=== PATIENT | male | born 1950 | race Caucasian/White ===

== ENCOUNTER → 2019-11-04 | Day surgery (SDC) | payer MEDICARE ==
[~2019-11-04] MED LIST: ACETAMINOPHEN 325 MG TABLET PO PRN; ALBUTEROL SULFATE 2.5 MG/3 ML NEBU. NEB PRN; APIX5TAB3 PO; ATEN50TA PO; ATOR20TA58 PO; ATROPINE 0.5 MG/5 ML DISP.SYRIN. IV PRN; BALANCED SALT IRRIG OPHTH SOLN 15 ML BOTTLE. IRR ONE; CATARACT OPHTH GEL 0.5 ML SYRINGE. OS ONE; CHONDROIT-SOD-HYALURONATE KIT. OS ONE; EPINEPHrine AMPULE 0.5 MG in BALANCED SALT IRRIG SOLN PLUS 500 ML IO ONE; ERYTHROMYCIN 0.5% OPHTH OINTMENT 1GM TUBE. ONE; ERYTHROMYCIN 0.5% OPHTH OINTMENT 1GM TUBE. OS ONE; HYALURONIDASE 75UNITS in LIDOCAINE 2% PF OPHTH 10 ML SYRINGE. OS ONE; IV RINGERS SOLUTION,LACTATED 1,000 ML IV SCH; KETOROLAC TROMETHAMINE 0.5% OPHTH SOLUTION BOTTLE. OS SCH; LEVO25TA4 PO; MIDAZOLAM HCL PF 2 MG/2 ML VIAL. IV PRN; MOXIFLOXACIN 0.5% OPHTH SOLUTION 3ML BOTTLE. OS SCH; ONDANSETRON PF 4 MG/2 ML VIAL. IV PRN; PHENOL ORAL SPRAY 177ML BOTTLE. MM PRN; POVIDONE-IODINE 5% OPHTH SOLUTION 30ML BOTTLE. OS ONE; PROPOFOL 10,000 MCG/ML (20ML) VIAL IV ONE; PROPOFOL 20 ML IV ONE; TETRACAINE 0.5% OPHTH SOLUTION 4ML BOTTLE. OS ONE; TETRACAINE 0.5% OPHTH SOLUTION 4ML BOTTLE. OU ONE; diphenhydrAMINE 50 MG/ML VIAL IV PRN; prednisoLONE ACETATE 1% OPHTH SUSPENSION 5ML BOTTLE. OS SCH
[2019-11-04] MEDS: MOXIFLOXACIN 0.5% OPHTH SOLUTION 3ML BOTTLE. OS SCH ×3 (06:58→07:14)
--- NOTE | 2019-11-04 08:15 | PDOC4 ---
Senile Cataract, Left Eye Date of Procedure: Nov 04, 2019 Preoperative Diagnosis: Senile Cataract, Left Eye Postoperative Diagnosis: Senile Cataract, Left Eye Anesthesia: Local (Block) with monitored anesthesia care Surgeon: Delonte Calix D.O. Procedure: Left Phacoemulsification with Intraocular Lens Implant Findings: Senile CataraCT Indications: Worsening vision interfering with patient's lifestyle Narrative: After discussing the risks, complications and alternatives, including but not limited to loss of vision, infections, bleeding, swelling, anesthetic reaction, capsule rupture with vitreous loss, etc., the patient was given a peribulbar block under mild sedation and cardiac monitoring. Pressure was applied to the eye for approximately 10 minutes. The patient was transferred to the main operating room and was prepped and draped in the usual sterile fashion and positioned under the microscope. A lid speculum was placed. A temporal clear corneal incision was made with a keratome and viscoelastic was injected into the eye. A continuous tear capsulorrhexis was a performed, then hydro-dissection was accomplished with balanced salt solution. The phacoemulsification needle was placed in the eye and the nucleus was emulsify. The remaining cortical material was removed with the irrigation and aspiration apparatus. The capsule was polished as needed. The posterior capsule was noted to be clean and intact. Viscoelastic was injected into the eye and bleeding the capsular bag. An intraocular lens was injected into the eye, and folding as desired and was positioned in the capsular bag. The pupil expansion ring was removed from the eye. Viscoelastic was aspirated from the eye. The wound edges were hydrated and balance was salt solution and there were no leaks. Viscoelastic was injected over the limbal incisions. Antibiotic and steroids were placed on the eye. The lid speculum was removed, the eye patched shut and a Ambrocio shield applied. There were no complications and the patient was taken to the PACU in good condition. DELONTE CALIX DO Nov 04, 2019 08:15
[2019-11-04 08:33] VITALS: BP 117/76
== END | disposition home or self-care (01) ==
LOC: SURG 06:00
PROVIDERS: ATTEND Ophthalmology
DX: H25.89 Other age-related cataract (principal); I48.91 Unspecified atrial fibrillation; M19.90 Unspecified osteoarthritis, unspecified site; E03.9 Hypothyroidism, unspecified; I10 Essential (primary) hypertension; Z86.73 Personal history of transient ischemic attack (TIA), and cerebral infarction without residual deficits; Z79.899 Other long term (current) drug therapy; Z87.01 Personal history of pneumonia (recurrent); Z98.890 Other specified postprocedural states
CPT/HCPCS: 66982; J0171; J2704; V2632; 45378

== ENCOUNTER 2021-10-18 08:58 | Emergency (ER) | payer MEDICARE ==
[~2021-10-18] VITALS: Ht 200.7 cm; Wt 126.3 kg
[~2021-10-18 08:58] MED LIST changes: -ACETAMINOPHEN 325 MG TABLET PO PRN; -ALBUTEROL SULFATE 2.5 MG/3 ML NEBU. NEB PRN; -ATROPINE 0.5 MG/5 ML DISP.SYRIN. IV PRN; -BALANCED SALT IRRIG OPHTH SOLN 15 ML BOTTLE. IRR ONE; -CATARACT OPHTH GEL 0.5 ML SYRINGE. OS ONE; -CHONDROIT-SOD-HYALURONATE KIT. OS ONE; -EPINEPHrine AMPULE 0.5 MG in BALANCED SALT IRRIG SOLN PLUS 500 ML IO ONE; -ERYTHROMYCIN 0.5% OPHTH OINTMENT 1GM TUBE. ONE; -ERYTHROMYCIN 0.5% OPHTH OINTMENT 1GM TUBE. OS ONE; -HYALURONIDASE 75UNITS in LIDOCAINE 2% PF OPHTH 10 ML SYRINGE. OS ONE; -IV RINGERS SOLUTION,LACTATED 1,000 ML IV SCH; -KETOROLAC TROMETHAMINE 0.5% OPHTH SOLUTION BOTTLE. OS SCH; -MIDAZOLAM HCL PF 2 MG/2 ML VIAL. IV PRN; -MOXIFLOXACIN 0.5% OPHTH SOLUTION 3ML BOTTLE. OS SCH; -ONDANSETRON PF 4 MG/2 ML VIAL. IV PRN; -PHENOL ORAL SPRAY 177ML BOTTLE. MM PRN; -POVIDONE-IODINE 5% OPHTH SOLUTION 30ML BOTTLE. OS ONE; -PROPOFOL 10,000 MCG/ML (20ML) VIAL IV ONE; -PROPOFOL 20 ML IV ONE; -TETRACAINE 0.5% OPHTH SOLUTION 4ML BOTTLE. OS ONE; -TETRACAINE 0.5% OPHTH SOLUTION 4ML BOTTLE. OU ONE; -diphenhydrAMINE 50 MG/ML VIAL IV PRN; -prednisoLONE ACETATE 1% OPHTH SUSPENSION 5ML BOTTLE. OS SCH
--- NOTE | 2021-10-18 09:37 | PHYS DOC ---
Past History Additional Past Medical Histor: prostate CA (SENA HALEY APRN) Past Surgical History: Other Additional Past Surgical Histo: abd mesh palced for abd hernia (SENA HALEY APRN) Alcohol Use: None (SENA HALEY APRN) General Adult EDM: Chief Complaint: SHORTNESS OF BREATH HPI: HPI: Patient is a 71-year-old male who presents to the emergency department for shortness of breath, nonproductive cough, nasal and chest congestion that started yesterday. Patient reports that he has been retaining more fluid than normal and is on a diuretic. He states that he did not take his medications today. He went to Dr. Belle's office and was sent to the emergency department because they said that his oxygen saturation was 71% on room air. Patient does not wear oxygen at home. When patient arrived he is in no acute distress and his O2 saturation is 97% on room air and he is nonlabored. Patient denies any shortness of breath at rest but reports shortness of breath with exertion and noticed that when he was walking down his stairs today. Patient denies any recent travel, fever, nausea, vomiting, chest pain, sick exposures. Patient has a history of A. fib on Eliquis, CHF, prostate cancer and just underwent radiation treatments and hypertension. (SENA HALEY APRN) Review of Systems: Review of Systems: Constitutional: See HPI HENT: See HPI Respiratory: See HPI Cardiovascular: See HPI GI: See HPI (SENA HALEY APRN) Allergies: Allergies: Allergies Coded Allergies Type Severity Reaction Last Updated Verified No Known Drug Allergies 10/18/21 No (SENA HALEY APRN) Physical Exam: PE: Constitutional: Well developed, well nourished, no acute distress, non-toxic appearance. [] HENT: Normocephalic, atraumatic, bilateral external ears normal, oropharynx moist, no oral exudates, nose normal. [] Eyes: PERRL, EOMI, conjunctiva normal, no discharge. [] Neck: Normal range of motion, no tenderness, supple, no stridor. [] Cardiovascular:Heart rate regular rhythm, no murmur [] Lungs & Thorax: Bilateral breath sounds clear to auscultation [] Abdomen: Bowel sounds normal, soft, no tenderness, no masses, no pulsatile masses. [] Skin: Warm, dry, no erythema, no rash. [] Back: normal ROM Extremities: No tenderness, no cyanosis, no clubbing, ROM intact, trace edema noted to BLE. [] Neurologic: Alert and oriented X 3, normal motor function, normal sensory function, no focal deficits noted. [] Psychologic: Affect normal, judgement normal, mood normal. [] (SENA HALEY APRN) Current Patient Data: Labs: Laboratory Tests Test 10/18/21 09:50 White Blood Count 6.4 x10^3/uL Red Blood Count 3.91 x10^6/uL Hemoglobin 12.9 g/dL Hematocrit 37.9 % Mean Corpuscular Volume 97 fL Mean Corpuscular Hemoglobin 33 pg Mean Corpuscular Hemoglobin Concent 34 g/dL Red Cell Distribution Width 14.1 % Platelet Count 142 x10^3/uL Neutrophils (%) (Auto) 78 % Lymphocytes (%) (Auto) 10 % Monocytes (%) (Auto) 11 % Eosinophils (%) (Auto) 1 % Basophils (%) (Auto) 0 % Neutrophils # (Auto) 5.0 x10^3uL Lymphocytes # (Auto) 0.6 x10^3/uL Monocytes # (Auto) 0.7 x10^3/uL Eosinophils # (Auto) 0.1 x10^3/uL Basophils # (Auto) 0.0 x10^3/uL Sodium Level 140 mmol/L Potassium Level 4.5 mmol/L Chloride Level 106 mmol/L Carbon Dioxide Level 28 mmol/L Anion Gap 6 Blood Urea Nitrogen 27 mg/dL Creatinine 1.5 mg/dL Estimated GFR (Cockcroft-Gault) 46.0 BUN/Creatinine Ratio 18 Glucose Level 108 mg/dL Calcium Level 9.0 mg/dL Total Bilirubin 1.0 mg/dL Aspartate Amino Transf (AST/SGOT) 16 U/L Alanine Aminotransferase (ALT/SGPT) 25 U/L Alkaline Phosphatase 35 U/L Troponin I High Sensitivity 10 ng/L LV-Jlm-A-Type Natriuretic Peptide 1322 pg/mL Total Protein 6.8 g/dL Albumin 3.3 g/dL Albumin/Globulin Ratio 0.9 Influenza Type A (Rapid) Negative Influenza Type B (Rapid) Negative Vital Signs: Vital Signs Date Time Temp Pulse Resp B/P (MAP) Pulse Ox O2 Delivery O2 Flow Rate FiO2 10/18/21 09:07 99.2 87 14 117/51 (73) 98 Room Air (SENA HALEY APRN) EKG: EKG: EKG performed by ER staff at 48 shows A. fib with a rate of 88, no STEMI read by Dr. Chung at 50 [] (SENA HALEY APRN) Radiology/Procedures: Radiology/Procedures: []REASON: soa PROCEDURE: PORTABLE CHEST 1V XR CHEST 1V History: Reason: soa / Spl. Instructions: / History: Comparison: July 05, 2016 Findings: Mild left basilar linear atelectasis. No consolidation or pleural effusion. No pneumothorax. Impression: 1. Mild left basilar linear atelectasis. Electronically signed by: Jerry Mitchell DO (10/18/2021 9:37 AM) [id number] DICTATED AND SIGNED BY: JERRY MITCHELL DO DATE: 10/18/21935 CC: SENA HALEY APRN; STEPHANIE CONWAY EXTERNAL AUDITOR-C ~MTH0 0 (SENA HALEY APRN) Heart Score: C/O Chest Pain: No Risk Factors: Risk Factors: DM, Current or recent (<one month) smoker, HTN, HLP, family history of CAD, obesity. Risk Scores: Score 0 - 3: 2.5% MACE over next 6 weeks - Discharge Home Score 4 - 6: 20.3% MACE over next 6 weeks - Admit for Clinical Observation Score 7 - 10: 72.7% MACE over next 6 weeks - Early Invasive Strategies (SENA HALEY APRN) Course & Med Decision Making: Course & Med Decision Making Pertinent Labs and Imaging studies reviewed. (See chart for details) Patient presents to the emergency department for chest and nasal congestion, nonproductive cough and shortness of breath with exertion that started yesterday. Patient was sent from Dr. Belle's office for an O2 saturation of 71% on room air, however patient is nonlabored, in no acute distress and not having hypoxia or tachypnea. Work-up in the ER consisted of blood work, EKG and chest x-ray. Chest x-ray shows left basilar atelectasis, he will be treated with an antibiotic. Patient CBC was unremarkable. Negative influenza testing. Patient did not have an elevated troponin. Patient has an elevation in his BUN and creatinine as well as an elevated BNP, I discussed these findings with prior patient's primary care provider Dr. Orellana who stated that patient does have a history of chronic kidney disease and does have an elevated BNP in which he follows up with an employment and claims aide at [facility]. Patient was ambulated and did not become hypoxic. His vital signs are stable and he is in no acute distress. Patient will be discharged home with an antibiotic and is advised to follow-up with Dr. Belle tomorrow. I discussed with patient all findings and diagnostic testing as well as the need to follow-up with PCP for further evaluation and treatment or return to the ER if any new or worsening symptoms. Strict return precautions were also discussed at length. Patient voiced understanding and agreement with the plan. Patient is hemodynamically stable at the time of disposition. (SENA HALEY APRN) Dragon Disclaimer: Ezra Disclaimer: This electronic medical record was generated, in whole or in part, using a voice recognition dictation system. (SENA HALEY APRN) Attending Co-Sign The patient was seen and interviewed as well as examined at the bedside. The chart was reviewed. The case was discussed. Agree with the plan of care. (BEATRICE CHUNG DO) Departure Departure: Impression: Primary Impression: Person under investigation for COVID-19 Additional Impression: Pneumonia Qualified Codes: J18.9 - Pneumonia, unspecified organism Disposition: HOME / SELF CARE / HOMELESS Condition: GOOD Referrals: STEPHANIE CONWAY (PCP) Patient Instructions: Pneumonia, Adult Additional Instructions: You were seen in the emergency department today for chest congestion, nasal congestion, cough and shortness of breath. Make sure that you are taking all of your medications as directed, ensure that you are taking your diuretic. Your vital signs were stable and you are no acute distress, your O2 saturations were normal today. Your chest x-ray shows a possible pneumonia and this will be treated with an antibiotic, please start and finish it completely. Please follow-up with Dr. Orellana tomorrow in his office. I have discussed your ER evaluation with him today. You will need to follow-up with your employment and claims aide regarding your congestive heart failure. I would advise you to purchase a pulse oximeter and you can monitor your O2 saturations at home. Please return to the emergency department if your O2 saturation drops below 90%. We tested you in the emergency department today for COVID-19 and you will be notified of those results in approximately 2 days when they become available. Please return to the emergency department if you develop worsening of your shortness of breath, weakness, chest pain, high fevers refractory to treatment, intractable nausea or vomiting or any new or worsening concerns. Scripts Azithromycin (AZITHROMYCIN TABLET) 250 Mg Tablet 1 PKG PO UD for pneumonia for 5 Days, #6 TAB 0 Refills 2 the first day followed by 1 for days 2-5 Prov: SENA HALEY APRN 10/18/21 SENA HALEY APRN Oct 18, 2021 09:37 BEATRICE CHUNG DO Oct 19, 2021 11:24
--- NOTE | 2021-10-18 09:40 | RAD ---
XR CHEST 1V History: Reason: soa / Spl. Instructions: / History: Comparison: July 05, 2016 Findings: Mild left basilar linear atelectasis. No consolidation or pleural effusion. No pneumothorax. Impression: 1. Mild left basilar linear atelectasis. Electronically signed by: Jerry Mitchell DO (10/18/2021 9:37 AM) [id number]
--- NOTE | 2021-10-18 10:04 | EKG ---
[address] [address] Test Date: 2021-10-18 Test Time: 09:48:23 Pat Name: KOURTNEY SHABAZZ Department: Room: Gender: M Building Equipment Operator: YOVANNY : 1950 Requested By: SENA HALEY Order Number: [id number] Reading MD: Measurements Intervals [place] Rate: 88 P: [place]: QRS: 11 QRSD: 80 T: -9 QT: 356 QTc: 434 Interpretive Statements IRREGULAR RHYTHM, NO P-WAVE FOUND LOW LIMB LEAD VOLTAGE NO SPECIFIC ECG ABNORMALITIES RI6.02 No previous ECG available for comparison
[2021-10-18 10:32] LABS: BASO % 0 % (0-3); EOS # 0.1 x10^3/uL (0.0-0.7); EOS % 1 % (0-3); HEMATOCRIT 37.9 % (39.0-53.0); HEMOGLOBIN 12.9 g/dL (13.0-17.5); LYMPH # 0.6 x10^3/uL (1.0-4.8); LYMPH % 10 % (24-48); MEAN CORPUSCULAR HEMOGLOBIN 33 pg (25-35); MEAN CORPUSCULAR HGB CONC 34 g/dL (31-37); MEAN CORPUSCULAR VOLUME 97 fL (79-100); MONO # 0.7 x10^3/uL (0.0-1.1); MONO % 11 % (0-9); NEUT % 78 % (31-73); PLATELET COUNT 142 x10^3/uL (140-400); RED BLOOD COUNT 3.91 x10^6/uL (4.30-5.70); RED CELL DISTRIBUTION WIDTH 14.1 % (11.5-14.5); WHITE BLOOD COUNT 6.4 x10^3/uL (4.0-11.0)
[2021-10-18 10:39] LABS: CREATININE 1.5 mg/dL (0.7-1.3); POTASSIUM 4.5 mmol/L (3.5-5.1)
[2021-10-18 10:43] LABS: INFLUENZA A PATIENT NEGATIVE (NEGATIVE); INFLUENZA B PATIENT NEGATIVE (NEGATIVE)
[2021-10-18 10:51] LABS: ALBUMIN 3.3 g/dL (3.4-5.0); ALBUMIN/GLOBULIN RATIO 0.9 (1.0-1.7); TOTAL PROTEIN 6.8 g/dL (6.4-8.2)
[2021-10-18] MEDS ORDERED: AZIT250T6 PO (11:21)
[2021-10-18 11:42] VITALS: BP 116/72
== END 2021-10-18 11:42 | disposition home or self-care (01) ==
LOC: ER 08:58
DX: J18.9 Pneumonia, unspecified organism (principal); Z20.822 Contact with and (suspected) exposure to COVID-19
CPT/HCPCS: 71045; 80053; 83880; 84484; 85025; 87804; 93005; 99285; C9803; U0003

== ENCOUNTER 2021-12-27 00:07 | Emergency (ER) | payer MEDICARE ==
[~2021-12-27] VITALS: Ht 198.1 cm; Wt 128.9 kg
[~2021-12-27 00:07] MED LIST changes: +AZIT250T6 PO
--- NOTE | 2021-12-27 00:20 | PHYS DOC ---
Past History Additional Past Medical Histor: prostate CA Past Surgical History: Other Additional Past Surgical Histo: abd mesh palced for abd hernia Alcohol Use: None General Adult HPI: HPI: 71 yo M PMH CVA, afib (on eliquis), HTN, HLD, former prostate cancer (s/p radiation) and h/o a bladder tumor, presents to the ed with c/o peeing blood that just prior to arrival. No history of similar symptoms. Patient with no history of anemia and has never required a blood transfusion. Follows with urology Dr. Forte and had an unremarkable laparoscopy in October of this year w/no bladder tumor. Review of Systems: Review of Systems: Constitutional: Denies fever or chills Eyes: Denies change in visual acuity HENT: Denies nasal congestion or sore throat Respiratory: Denies cough or shortness of breath Cardiovascular: Denies chest pain or edema GI: Denies abdominal pain, nausea, vomiting, bloody stools or diarrhea : Denies flank pain or incontinence Musculoskeletal: Denies back pain or joint pain Integument: Denies rash or diaphoresis Neurologic: Denies headache, focal weakness or sensory changes Endocrine: Denies polyuria or polydipsia Lymphatic: Denies swollen glands Psychiatric: Denies depression or anxiety Allergies: Allergies: Allergies Coded Allergies Type Severity Reaction Last Updated Verified No Known Drug Allergies 10/18/21 No Physical Exam: PE: Constitutional: Well developed, well nourished, no acute distress, non-toxic appearance. HENT: Normocephalic, atraumatic, Eyes: EOMI, conjunctiva normal, no discharge. Neck: Normal range of motion, supple, Cardiovascular: S1/2 present, regular rhythm Lungs & Thorax: Speaking in full sentences, bilateral equal chest rise, no tachypnea or increased work of breathing Abdomen: soft, no tenderness, Skin: Warm, dry, no erythema, no rash. [] Back: No tenderness, no CVA tenderness. [] Extremities: No tenderness, no cyanosis, no lower extremity edema Neurologic: Alert and oriented X 3, normal motor function, normal sensory function, no focal deficits noted. [] Psychologic: Affect normal, judgement normal, mood normal. [] : dark bloody urine, no sediment, EKG: EKG: [] Radiology/Procedures: Radiology/Procedures: IMAGING REPORT Signed PATIENT: KOURTNEY SHABAZZ I ACCOUNT: [id number] : 1950 LOCATION: ER AGE: 71 SEX: M EXAM STATUS: REG ER ORD. PHYSICIAN: LETICIA HUTCHINSON DO REASON: Hematuria, r/o mass/aaa Hx: Prostate/bladder CA Omni 300 60cc PROCEDURE: CT ABD PELV W/ IV CONTRST ONLY Exam: CT abdomen/pelvis with intravenous contrast Indication: Hematuria, rule out mass or abdominal aortic aneurysm. History of prostate and bladder cancer. Comparison: None Technique: Helical CT imaging performed of the abdomen and pelvis after the intravenous administration of 60 mL Omnipaque 300 contrast. Sagittal and coronal reformats were obtained. One or more of the following individualized dose reduction techniques were utilized for this examination: 1. Automated exposure control 2. Adjustment of the mA and/or kV according to patient size 3. Use of iterative reconstruction technique. Findings: Lower chest: Mild atelectasis in the lower lobes. Heart is normal in size. There are coronary artery calcifications. Liver: No focal liver lesion. Gallbladder/Biliary Tree: Normal. Pancreas: Normal. Spleen: Normal. Adrenal Glands: Normal. Kidneys/Ureters/Bladder: Kidneys are normal in size and enhance symmetrically. A 1.7 x 1.6 cm area of nodularity in the mid left kidney projecting into the sinus is isoattenuating to renal cortex and likely a prominent column of Ayan. No hydronephrosis. The ureters are normal. Urinary bladder demonstrates mild diffuse wall thickening and surrounding fat stranding. Reproductive Organs: There are fiducial markers in the prostate gland on the right. Stomach, small bowel, and colon: The stomach is normal. There is no small bowel obstruction. The appendix is normal. The colon is normal. Vasculature: No aortic aneurysm. Mild calcified aortoiliac atherosclerosis. Infrarenal abdominal aortic ectasia measuring 2.4 cm. Lymph Nodes: No lymphadenopathy. Peritoneum and retroperitoneum: No free fluid or free air. Bones: The bones are diffusely demineralized. There are chronic bilateral L5 pars defects with 1 cm spondylolisthesis at L5-S1. Moderate degenerative disc disease and moderate to severe bilateral foraminal narrowing at L5-S1. Mild degenerative disc disease elsewhere. Mild degenerative joint disease of the hips. Miscellaneous: None. IMPRESSION: 1. Mild diffuse bladder wall thickening and surrounding fat stranding consistent with cystitis. 2. 1.7 cm area of nodularity in the mid left kidney projecting into the renal sinus is likely a prominent column of Ayan, normal variant. This could be confirmed with CT or MRI with renal mass protocol to exclude mass. 3. Infrarenal abdominal aortic ectasia measuring 2.4 cm. Mild calcified aortoiliac atherosclerosis. Coronary artery calcifications. 4. Degenerative disc disease and bilateral L5 spondylolysis with grade 1 spondylolisthesis at L5-S1. Electronically signed by: Kristine Schumacher MD (12/27/2021 2:15 AM) [facility] Heart Score: C/O Chest Pain: No Risk Factors: Risk Factors: DM, Current or recent (<one month) smoker, HTN, HLP, family history of CAD, obesity. Risk Scores: Score 0 - 3: 2.5% MACE over next 6 weeks - Discharge Home Score 4 - 6: 20.3% MACE over next 6 weeks - Admit for Clinical Observation Score 7 - 10: 72.7% MACE over next 6 weeks - Early Invasive Strategies Course & Med Decision Making: Course & Med Decision Making Pertinent Labs and Imaging studies reviewed. (See chart for details) On reevaluation patient reports painful urination/dysuria "Well when I think of it it does hurt to pee." Patient hemodynamically stable with chronic kidney disease -no change from baseline. CT imaging concerning for cystitis with incidental infrarenal ectatic aorta. Patient with no brisk bleeding. H&H stable. No tachycardia. Low suspicion for rupture at this time given HD stability, no persistent bleeding and absence of back/abdomen or chest pain. Will prescribe vantin x2 weeks and will discharge home with strict ED return precautions given for fever, flank pain, nausea, vomiting, back pain, worsening bleeding, syncope or shortness of breath. Encouraged urgent outpatient follow-up with PMD and urology. Life-threatening processes were considered but are low suspicion at this time, given history, physical exam and ED workup. Pt was educated on all prescription medications and adverse effects. All patient's questions were answered and pt was stable at time of discharge. Life/limb-threatening differential includes but is not limited to, trauma, infection, nephrolithiasis, kidney disease, malignancy, obstructive uropathy, BPH, AAA/AVF/aortic dissection, or schistosomiasis. I have spoken with the patient and/or caregivers. I explained the patient's condition, diagnoses and treatment plan based on the information available to me at this time. I have answered the patient and/or caregiver's questions and addressed any concerns. The patient and/or caregivers have a good understanding of patient's diagnosis, condition and treatment plan as can be expected at this point. Vital signs have been stable. Patient's condition is stable and appropriate for discharge from the emergency department. Patient will pursue further outpatient evaluation with primary care physician or other designated or consulting physician as outlined in the discharge instructions. The patient and/or caregivers are agreeable to this plan of care and follow-up instructions have been explained in detail. The patient and/or caregivers have received these instructions in written form and have expressed a n understanding of the discharge instructions. The patient and/or caregivers are aware that any significant change of condition or worsening of symptoms should prompt immediate return to this or the closest emergency department or call to 1. Ezra Disclaimer: Ezra Disclaimer: This electronic medical record was generated, in whole or in part, using a voice recognition dictation system. Departure Departure: Impression: Primary Impression: Cystitis Additional Impressions: Hematuria CKD (chronic kidney disease) Aneurysm of infrarenal abdominal aorta Disposition: HOME / SELF CARE / HOMELESS Condition: STABLE Referrals: JESSY KEENE MD (PCP) follow up within 5-7 days for re-evaluation Patient Instructions: Hematuria, Adult, Urinary Tract Infection Additional Instructions: FOLLOW WITH UROLOGY: To discuss cystoscopy for hematuria [facility] [address] [place] [address] OR [facility] [address] [place] [id number] EMERGENCY DEPARTMENT GENERAL DISCHARGE INSTRUCTIONS Thank you for coming to [facility] (ED) today and trusting us with you care. We trust that you had a positivie experience in our Emergency Department. If you wish to speak to the department management, you may call the director at [phone]. YOUR FOLLOW UP INSTRUCTIONS ARE FOLLOWS: 1. Do you have a private Doctor? If you do not have a private doctor, please ask for a resource list of physicians or clinics that may be able to assist you with follow up care. 2. The Emergency Physician has interpreted your x-rays. The X-Ray specialist will also review them. If there is a change in the findings, you will be notified in 48 hours when at all possible. 3. A lab test or culture has been done, your results will be reviewed and you will be notified if you need a change in treatment. ADDITIONAL INSTRUCTIONS AND INFORMATION: 1. Your care today has been supervised by a physician who is specially trained in emergency care. Many problems require more than one evaluation for a complete diagnosis and treatment. We recommend that you schedule your follow up appointment as recommended to ensure complete treatment of you illness or injury. If you are unable to obtain follow up care and continue to have a problem, or if your condition worsens, we recommend that you return to the ED. 2. We are not able to safely determine your condition over the phone nor are we able to give sound medical advice over the phone. For these safety reasons, if you call for medical advice we will ask you to come to the ED for further evaluation. 3. If you have any questions regarding these discharge instructions please call the ED at [phone]. SAFETY INFORMATION: In the interest of safety, wellness, and injury prevention; we encourage you to wear your sealbelt, if you smoke; quite smoking, and we encourage family to use a protective helmet for bicycling and other sporting events that present an increased risk for head injury. IF YOUR SYMPTOMS WORSEN OR NEW SYMPTOMS DEVELOP, OR YOU HAVE CONCERNS ABOUT YOUR CONDITION; OR IF YOUR CONDITION WORSENS WHILE YOU ARE WAITING FOR YOUR FOLLOW UP APPOIN TMENT; EITHER CONTACT YOUR PRIMARY CARE DOCTOR, THE PHYSICIAN WHOSE NAME AND NUMBER YOU WERE GIVEN, OR RETURN TO THE ED IMMEDIATELY. Scripts Cefpodoxime Proxetil (CEFPODOXIME PROXETIL) 200 Mg Tablet 1 TAB PO BID for uti for 14 Days, #28 TAB Prov: LETICIA HUTCHINSON DO 12/27/21 LETICIA HUTCHINSON DO Dec 27, 2021 00:20
[2021-12-27] MEDS ORDERED: CONTRAST GIVEN. MC PRN (00:30)
[2021-12-27] MEDS ORDERED: IOHEXOL 300 MG/ML 75 ML VIAL. IV ONE (01:00)
[2021-12-27] MEDS ORDERED: IV NORMAL SALINE 1,000ML 1,000 ML IV ONE (01:00)
[2021-12-27 01:11] LABS: CALCIUM 9.2 mg/dL (8.5-10.1); CREATININE 1.5 mg/dL (0.7-1.3)
[2021-12-27 01:13] LABS: BACTERIA,URINE FEW /HPF (0-FEW); CLARITY,URINE BLOODY; COLOR,URINE BROWN; RBC,URINE TNTC /HPF (0-2)
[2021-12-27 01:14] LABS: BASO % 1 % (0-3); EOS # 0.1 x10^3/uL (0.0-0.7); EOS % 2 % (0-3); HEMATOCRIT 41.3 % (39.0-53.0); HEMOGLOBIN 13.5 g/dL (13.0-17.5); LYMPH # 1.1 x10^3/uL (1.0-4.8); LYMPH % 33 % (24-48); MEAN CORPUSCULAR HEMOGLOBIN 33 pg (25-35); MEAN CORPUSCULAR HGB CONC 33 g/dL (31-37); MEAN CORPUSCULAR VOLUME 100 fL (79-100); MONO # 0.5 x10^3/uL (0.0-1.1); MONO % 15 % (0-9); NEUT # 1.7 x10^3uL (1.8-7.7); NEUT % 50 % (31-73); PLATELET COUNT 158 x10^3/uL (140-400); RED BLOOD COUNT 4.14 x10^6/uL (4.30-5.70); RED CELL DISTRIBUTION WIDTH 14.1 % (11.5-14.5); WHITE BLOOD COUNT 3.5 x10^3/uL (4.0-11.0)
[2021-12-27 01:16] LABS: ALBUMIN 3.5 g/dL (3.4-5.0); TOTAL BILIRUBIN 0.8 mg/dL (0.2-1.0)
--- NOTE | 2021-12-27 02:17 | RAD ---
Exam: CT abdomen/pelvis with intravenous contrast Indication: Hematuria, rule out mass or abdominal aortic aneurysm. History of prostate and bladder ca ncer. Comparison: None Technique: Helical CT imaging performed of the abdomen and pelvis after the intravenous administratio n of 60 mL Omnipaque 300 contrast. Sagittal and coronal reformats were obtained. One or more of the following individualized dose reduction techniques were utilized for this examinat ion: 1. Automated exposure control 2. Adjustment of the mA and/or kV according to patient size 3. Use of iterative reconstruction technique. Findings: Lower chest: Mild atelectasis in the lower lobes. Heart is normal in size. There are coronary artery calcifications. Liver: No focal liver lesion. Gallbladder/Biliary Tree: Normal. Pancreas: Normal. Spleen: Normal. Adrenal Glands: Normal. Kidneys/Ureters/Bladder: Kidneys are normal in size and enhance symmetrically. A 1.7 x 1.6 cm area of nodularity in the mid left kidney projecting into the sinus is isoattenuating to renal cortex and li concepcion a prominent column of Ayan. No hydronephrosis. The ureters are normal. Urinary bladder demonst rates mild diffuse wall thickening and surrounding fat stranding. Reproductive Organs: There are fiducial markers in the prostate gland on the right. Stomach, small bowel, and colon: The stomach is normal. There is no small bowel obstruction. The appe ndix is normal. The colon is normal. Vasculature: No aortic aneurysm. Mild calcified aortoiliac atherosclerosis. Infrarenal abdominal aort ic ectasia measuring 2.4 cm. Lymph Nodes: No lymphadenopathy. Peritoneum and retroperitoneum: No free fluid or free air. Bones: The bones are diffusely demineralized. There are chronic bilateral L5 pars defects with 1 cm s pondylolisthesis at L5-S1. Moderate degenerative disc disease and moderate to severe bilateral forami nal narrowing at L5-S1. Mild degenerative disc disease elsewhere. Mild degenerative joint disease of the hips. Miscellaneous: None. IMPRESSION: 1. Mild diffuse bladder wall thickening and surrounding fat stranding consistent with cystitis. 2. 1.7 cm area of nodularity in the mid left kidney projecting into the renal sinus is likely a prom inent column of Ayan, normal variant. This could be confirmed with CT or MRI with renal mass protoc ol to exclude mass. 3. Infrarenal abdominal aortic ectasia measuring 2.4 cm. Mild calcified aortoiliac atherosclerosis. Coronary artery calcifications. 4. Degenerative disc disease and bilateral L5 spondylolysis with grade 1 spondylolisthesis at L5-S1. Electronically signed by: Kristine Schumacher MD (12/27/2021 2:15 AM) [facility]
[2021-12-27] MEDS ORDERED: CEFP200T PO (02:40)
[2021-12-27 02:48] VITALS: BP 138/82
== END 2021-12-27 02:53 | disposition home or self-care (01) ==
LOC: ER 00:07
DX: I12.9 Hypertensive chronic kidney disease with stage 1 through stage 4 chronic kidney disease, or unspecified chronic kidney disease (principal); N18.9 Chronic kidney disease, unspecified; N30.91 Cystitis, unspecified with hematuria; I71.4 Abdominal aortic aneurysm, without rupture; I48.91 Unspecified atrial fibrillation; E78.5 Hyperlipidemia, unspecified; Z85.46 Personal history of malignant neoplasm of prostate; Z86.73 Personal history of transient ischemic attack (TIA), and cerebral infarction without residual deficits
CPT/HCPCS: 36415; 74177; 80053; 81001; 85025; 85610; 85730; 87077; 87086; 87186; 96360; 99285; J7030; Q9967